=== PATIENT | female | born 1990 | race African-American/Black ===

== ENCOUNTER 2018-04-08 08:50 | Day surgery (SDC) | payer OTHER ==
[2018-04-06 09:30] LABS: HEMATOCRIT 38.2 % (36.0-47.0); HEMOGLOBIN 12.9 g/dL (12.0-15.5); MEAN CORPUSCULAR HEMOGLOBIN 29.3 pg (27.0-33.4); MEAN CORPUSCULAR HGB CONC 33.7 g/dL (32.0-36.0); MEAN CORPUSCULAR VOLUME 87 fl (80-97); PLATELET COUNT 251 10^3/uL (150-450); RED BLOOD COUNT 4.38 10^6/uL (3.72-5.28); RED CELL DISTRIBUTION WIDTH 14.1 % (11.5-14.0)
[2018-04-06 09:36] LABS: APPEARANCE,URINE SLIGHTLY-CLOUDY; BILIRUBIN,URINE NEGATIVE (NEGATIVE); COLOR,URINE YELLOW; GLUCOSE, URINE NEGATIVE (NEGATIVE); KETONES,URINE NEGATIVE (NEGATIVE); LEUKOCYTE ESTERASE,URINE SMALL (NEGATIVE); NITRITE,URINE POSITIVE (NEGATIVE); PROTEIN,URINE NEGATIVE (NEGATIVE); URINE SPECIFIC GRAVITY 1.013; UROBILINOGEN,URINE NEGATIVE mg/dL (<2.0)
[2018-04-06 09:54] LABS: ALANINE AMINOTRANSFERASE 12 U/L (9-52); ALBUMIN 4.9 g/dL (3.5-5.0); ALKALINE PHOSPHATASE 52 U/L (38-126); ANION GAP 13 (5-19); ASPARTATE AMINO TRANSFERASE 20 U/L (14-36); BILIRUBIN,DIRECT 0.2 mg/dL (0.0-0.4); BILIRUBIN,TOTAL 0.3 mg/dL (0.2-1.3); BLOOD UREA NITROGEN 11 mg/dL (7-20); CALCIUM 9.5 mg/dL (8.4-10.2); CARBON DIOXIDE 26 mmol/L (22-30); CHLORIDE 106 mmol/L (98-107); GLUCOSE 85 mg/dL (75-110); POTASSIUM 4.2 mmol/L (3.6-5.0); SODIUM 144.6 mmol/L (137-145); TOTAL PROTEIN 8.2 g/dL (6.3-8.2)
[~2018-04-08 08:50] MED LIST: CEFAZOLIN 1 GM/D5W RTU 1 GM/50 ML RTUPB IV ONE; CEFAZOLIN 1 GM/D5W RTU 1 GM/50 ML RTUPB IV PRN; LACTATED RINGERS 1000 ML IV PRN; LIDOCAINE 0.5% INJ-PF (5 MG/ML) 50 ML SDV SUBCUT PRN
[2018-04-08] MEDS ORDERED: BUPIVACAINE HCL 0.5 % INJ/PF 30 ML SDV ONE (09:00)
[2018-04-08] MEDS ORDERED: DEXAMETHASONE SOD PHOSPHATE INJ 4 MG/1 ML VIAL ONE (10:14)
[2018-04-08] MEDS ORDERED: MORPHINE SULFATE 10 MG/ML INJ ONE (10:14)
[2018-04-08] MEDS ORDERED: ACETAMINOPHEN 1,000 MG/100 ML RTUPB IV ONE (10:14)
[2018-04-08] MEDS ORDERED: MIDAZOLAM 2 MG/2 ML INJ ONE (10:14)
[2018-04-08] MEDS ORDERED: PROPOFOL INJ 200 MG/20 ML VIAL IV ONE (10:14)
[2018-04-08] MEDS ORDERED: FENTANYL CITRATE INJ/PF 100 MCG/2 ML AMPUL ONE ×2 (10:14→11:37)
[2018-04-08] MEDS ORDERED: ONDANSETRON HCL INJ/PF 4 MG/2 ML SDV ONE ×2 (10:14→12:50)
[2018-04-08] MEDS ORDERED: MEPERIDINE HCL/PF INJ 25 MG/1 ML DISP.SYRIN IV PRN (10:55)
[2018-04-08] MEDS ORDERED: MORPHINE SULFATE 10 MG/ML INJ IV PRN (10:55)
[2018-04-08] MEDS ORDERED: PROMETHAZINE HCL INJ 25 MG/1 ML VIAL IV PRN ×3 (10:55→11:46)
[2018-04-08] MEDS ORDERED: OXYCODONE-ACETAMINOPHEN 5-325 MG TABLET PO PRN ×4 (10:55→11:45)
[2018-04-08] MEDS ORDERED: FENTANYL CITRATE INJ/PF 100 MCG/2 ML AMPUL IV PRN ×3 (10:55)
[2018-04-08] MEDS ORDERED: DIPHENHYDRAMINE HCL 50 MG/ML VIAL IV PRN (10:55)
[2018-04-08] MEDS ORDERED: OXYCODONE-ACETAMINOPHEN 5-325 MG TABLET ONE (12:27)
[2018-04-08] MEDS ORDERED: SCOPOLAMINE HYDROBROMIDE 1.5 MG PATCH.TD72 ONE (12:50)
[2018-04-08] MEDS ORDERED: SUCCINYLCHOLINE CHLORIDE INJ 200 MG/10 ML VIAL ONE (13:38)
[2018-04-08 13:51] VITALS: BP 132/69
--- NOTE | 2018-04-08 17:12 | OPERATIVE REPORT E ---
Operative Report NAME: CHASE PALMA : 1990 AGE: 27Y DATE OF SURGERY: 04/08/2018 ROOM: PREOPERATIVE DIAGNOSIS: Undesired fertility. POSTOPERATIVE DIAGNOSIS: Undesired fertility. OPERATION: Laparoscopic Filshie clip application. SURGEON: LEE CLEVELAND M.D. ANESTHESIA: General and 0.25% Marcaine. PERTINENT HISTORY/OPERATIVE FINDINGS: This is a 27-year-old *------* who desires elective sterilization. She is aware this is a permanent procedure with a small failure rate and is willing to accept those risks. At the time of surgery the pelvic organs appeared to be normal. The uterus was normal size and shape. Tubes were normal. The ovaries appeared normal. The bowel appeared normal with normal peristalsis. The liver appeared to be normal. OPERATIVE PROCEDURE: The patient was brought into the OR, placed on the table in a supine position, inducted under general anesthesia. Following this she was repositioned in dorsal lithotomy position, prepped and draped in a sterile fashion. The bladder was emptied of about 100 mL of clear urine. The pelvic under anesthesia was performed. A bivalve speculum was inserted. The cervix was grasped on the anterior lip with a single-tooth tenaculum, sounded to 7 cm, and a tenaculum probe was inserted. The other equipment was removed. Attention was turned towards the abdominal wall. A Veress needle was introduced, a Bovie carried through the various layers until the abdominal cavity was entered. A drop of saline was placed on the peritoneum, the abdomen was picked up, and the saline egressed easily into the abdominal cavity. The Veress needle was then connected to the CO2 and the opening pressures were 4 cm of water. We insufflated the abdomen to 3 L of CO2, a pressure of 15 cm of water. Veress needle was removed. A small incision was made infraumbilically. Through this incision our trocar and sleeve were inserted. The trocar was removed and through the sleeve a laparoscope was inserted. A second incision was then made suprapubically. Through this incision a trocar and sleeve were inserted. The trocar was removed and through the sleeve a probe was inserted. The contents of the abdomen and pelvis were then visualized. A Filshie clip applicator was then gently inserted through. A clip was applied to both the right and the left tube in the mid portion. Pictures were taken. This terminated the procedure. The lower sleeve was removed. There was no evidence of active bleeding. The CO2 was allowed to escape. The upper sleeve was removed. The patient had 5 mL of 0.25% Marcaine injected in the subumbilical incision and she had 3 mL of 0.25% Marcaine injected in the suprapubic incision. The fascia was then closed in both incisions using interrupted 0 Vicryl. The skin incision was closed in the subumbilical incision with a subcuticular 4-0 Prolene. The suprapubic incision was closed with interrupted using 4-0 Prolene. Attention was turned down to the pelvis. The tenaculum probe was removed. There was no evidence of active bleeding. This terminated the procedure. The anesthesia was discontinued. The patient had bandages applied. She was placed back in the supine position and anesthesia was stopped. She was transferred to the recovery room in satisfactory condition. Negligible blood loss. DICTATING PHYSICIAN: LEE CLEVELAND M.D. [id number] [facility]#: [id number] ID: [id number] JOB#: [id number] ACCT: [id number] cc:LEE CLEVELAND M.D. >
== END 2018-04-08 13:56 | disposition home or self-care (01) ==
LOC: OROUT 08:50
PROVIDERS: ATTEND Obstetrics & Gynecology
DX: Z30.2 Encounter for sterilization (principal)
CPT/HCPCS: 36415; 85027; 81025; 80053; 81001; 58671; J2250; J3490; J0690; J1100; J3010; J2270; J0330; J2405; J2704; J0131; 851

== ENCOUNTER → 2018-07-01 | Outpatient (CLI) | payer OTHER ==
--- NOTE | 2018-07-02 09:21 | EEG PRO FEE REPORT ---
EEG INTERPRETATION PATIENT NAME: CHASE PALMA ROOM#: ORDER#: [id number] DATE OF STUDY: 07/01/2018 : 1990 REFERRING MD: JOSE EDUARDO AVERY M.D. REASON FOR STUDY: Evaluate for epileptiform activity MEDICATIONS: None History This is a 27 year old female with a history of seizures starting in September 2013 with reported last seizure in April of 2018. This EEG was requested for evaluation of epileptiform activity. EEG Interpretation This EEG was recorded during wakefulness and stage I sleep. The awake EEG is characterized by a well organized background with a well developed and reactive posterior dominant rhythm of approximately 10-11 Hz. The remainder of the background consisted of low amplitude frontally predominant beta activity. The EEG is symmetric in amplitudes and frequencies. There was occasional Mu rhythm noted in the bilateral central regions, left more commonly than right. Stage I sleep was characterized by slow rolling eye movements, slowing of the background rhythm by 1-2 Hz, and vertex waves. Stage II sleep was not achieved. Photic stimulation resulted in no appreciable photic driving, and there was no epileptiform activity elicited with photic stimulation. Hyperventilation resulted in the appearance of diffuse 6-7 Hz theta activity normal for age and no epileptiform activity was elicited. There were no epileptiform abnormalities {no sharp waves, and no spikes}. There were no seizures. The EKG showed a regular rhythm with typically 60-80 bpm. EEG Impression This EEG is within normal limits for age. There was no epileptiform activity or seizures. A single normal routine EEG does not rule out the possibility of epilepsy. If there is high clinical suspicion for epilepsy then additional EEG evaluation should be considered with further sleep-deprived EEGs or ambulatory EEG monitoring. INTERPRETING PHYSICIAN: SAIDA MORRIS M.D. /: GOLD TT: [id number] ID: [id number] /: 205 TD: 1909 JOB: [id number] cc:Mari WHITFIELD M.D. > MTDD
== END ==
LOC: NEURO 07:58
PROVIDERS: ATTEND Pediatrics
DX: G40.409 Other generalized epilepsy and epileptic syndromes, not intractable, without status epilepticus (principal); F41.9 Anxiety disorder, unspecified; F51.09 Other insomnia not due to a substance or known physiological condition
CPT/HCPCS: 95819